=== PATIENT | female | born 1965 | race Two or more races ===

== ENCOUNTER 2021-01-25 15:23 | Emergency (ER) | payer MEDICAID, OTHER ==
[~2021-01-25] VITALS: Ht 160 cm; Wt 45.4 kg
[2021-01-25 16:13] LABS: Urine Amorphous Crystal FEW /hpf (None Seen); Urine Bacteria MOD /hpf (None Seen); Urine Blood Negative /uL (Negative); Urine Specific Gravity 1.006 (1.001-1.035); Urine WBC 27 /hpf (0 - 5)
[2021-01-25 17:52] VITALS: BP 138/90
== END 2021-01-25 18:07 | disposition home or self-care (01) ==
LOC: ER 15:23
DX: A60.00 Herpesviral infection of urogenital system, unspecified (principal)
CPT/HCPCS: 81001

== ENCOUNTER 2022-07-19 15:45 | Emergency (ER) | payer MEDICAID ==
[~2022-07-19] VITALS: Ht 152.4 cm; Wt 54.5 kg
[~2022-07-19 15:45] MED LIST: PANT40TA2 PO; SUCR1SUS10 PO; VANC125PO PO
[2022-07-19 17:48] LABS: Urine Bacteria NONE SEEN /hpf (None Seen); Urine Blood 1+ /uL (Negative); Urine Hyaline Cast MOD /lpf (0 - 2); Urine Mucus FEW (None Seen); Urine Specific Gravity 1.017 (1.001-1.035); Urine WBC 364 /hpf (0 - 5); Urine WBC Clumps PRESENT /hpf (None Seen)
[2022-07-20 10:11] VITALS: BP 166/73
[2022-07-20] MEDS ORDERED: cefTRIAXone SOD 1,000 MG VL IM ONE (11:45)
[2022-07-20] MEDS ORDERED: FLUC150T38 PO (13:20)
[2022-07-20] MEDS ORDERED: METR500T14 PO (13:20)
[2022-07-20] MEDS ORDERED: CIPR500T4 PO (13:20)
== END 2022-07-20 13:25 | disposition home or self-care (01) ==
LOC: ER 15:45
DX: N39.0 Urinary tract infection, site not specified (principal); N76.0 Acute vaginitis; B96.89 Other specified bacterial agents as the cause of diseases classified elsewhere; B37.31 Acute candidiasis of vulva and vagina; Z79.2 Long term (current) use of antibiotics; Z79.899 Other long term (current) drug therapy
CPT/HCPCS: 81001; 87070; 87210; 96372; 99283; J0696

== ENCOUNTER 2023-11-19 16:31 | Inpatient (IN) | payer MEDICAID, SELFPAY ==
[~2023-11-19] VITALS: Ht 152.4 cm; Wt 60.1 kg
[~2023-11-19 16:31] MED LIST changes: +CIPR500T4 PO; +FLUC150T38 PO; +METR-344 PO; -SUCR1SUS10 PO; +SUCR1SUS26 PO
[2023-11-19] MEDS: DEXTROSE (50%) 50ML SYRG IV ONE ×2 (16:53→19:17)
[2023-11-19] MEDS: DEXTROSE 50% SYRINGE 50 ML IV ONE (16:59)
[2023-11-19 17:10] VITALS: PULSE 103; RESP 16; O2SAT 97
[2023-11-19 17:29] LABS: Basophils # (auto) 0 10 ^3/uL (0-0.2); Basophils % (auto) 0.2 % (0.0-2.0); Hematocrit 24.7 % (36.0-46.0); Mean Corpuscular Volume 103.7 fL (80.0-100.0); Monocytes # (auto) 0.8 10 ^3/uL (0-1.3); Red Blood Cells 2.38 10^6/uL (4.0-5.20); White Blood Cell 13.2 10^3/uL (4.4-10.8)
[2023-11-19 17:31] LABS: Eosinophils # (auto) 0 10 ^3/uL (0-0.8); Eosinophils % (auto) 0.2 % (0.0-7.0); Hemoglobin 8.5 g/dL (12.2-16.2); Lymphocytes # (auto) 0.6 10 ^3/uL (0.4-5.4); Lymphocytes % (auto) 4.4 % (10.0-50.0); Mean Corpuscular Hemoglobin 35.6 pg (28.0-32.0); Mean Corpuscular Hgb Conc. 34.3 g/dL (32.0-36.0); Monocytes % (auto) 6.3 % (0.0-12.0); Neutrophils # (auto) 11.7 10 ^3/uL (1.6-8.6); Neutrophils % (auto) 88.9 % (37.0-80.0); Red Cell Distribution Width 14.3 % (11.8-14.3)
[2023-11-19 17:44] LABS: Alanine Aminotransferase 29 U/L (7-40); Albumin 4.1 g/dL (3.2-4.8); Alkaline Phosphatase 107 U/L (46-116); Anion Gap 18.00001 (5-15); Aspartate Aminotransferase 110 U/L (13-40); BUN/Creatinine Ratio 9.6 (10.0-20.0); Bilirubin, Total 0.2 mg/dL (0.2-1.0); Blood Urea Nitrogen 50 mg/dL (9-23); Calcium 8.8 mg/dL (8.5-10.1); Chloride 97 mmol/L (98-107); Magnesium 1.8 mg/dL (1.6-2.6); Potassium 3.6 mmol/L (3.5-5.1); Sodium 125 mmol/L (136-145)
[2023-11-19 17:45] LABS: Total Protein 6.8 g/dL (5.7-8.2)
[2023-11-19 17:46] LABS: INR 1.19 (0.9-1.15); Partial Thromboplastin Time 45.3 SEC (24.5-34.5); Prothrombin Time 12.5 sec (9.3-11.8)
[2023-11-19 17:54] LABS: Base Excess -17.3 mmol/L (-2.0-2.0)
[2023-11-19 18:00] LABS: Carbon Dioxide < 10 mmol/L (20-30); Glucose 27 mg/dL (74-106)
[2023-11-19] MEDS: cefTRIAXone 1GM/50ML D5W 50 ML IV ONE (18:44)
[2023-11-19] MEDS: SODIUM CHLORIDE 0.9% 500 ML IV ONE (18:45)
[2023-11-19 18:51] LABS: Urine Bacteria FEW /hpf (None Seen); Urine Blood 3+ /uL (Negative); Urine Clarity Ex.Turbid (Clear); Urine Color Brown (Yellow); Urine Protein, UAD 3+ (Negative); Urine Specific Gravity 1.014 (1.001-1.035); Urine Urobilinogen Normal (Negative); Urine WBC 1384 /hpf (0 - 5); Urine WBC Clumps PRESENT /hpf (None Seen)
[2023-11-19 18:59] LABS: Amphetamine Screen, Urine Neg (NEGATIVE); Barbiturate Scree,Urine Neg (NEGATIVE); Benzodiazephine Screen, Urine Neg (NEGATIVE); Cocaine Screen, Urine Neg (NEGATIVE)
[2023-11-19 19:00] LABS: Cannabinoid Screen, Urine Neg (NEGATIVE); Opiate Scree,Urine Pos (NEGATIVE); Phencyclidine Screen, Urine Neg (NEGATIVE)
[2023-11-19] MEDS ORDERED: DEXTROSE 10% 250 ML IV ONE (19:15)
[2023-11-19 19:30] VITALS: PULSE 86; RESP 14; O2SAT 98
[2023-11-19] MEDS: DEXTROSE 10% 1,000 ML IV SCH (19:39)
[2023-11-19 20:05] LABS: Platelet Estimate Decreased
[2023-11-19] MEDS ORDERED: HYDROcodone-ACET 5/325MG TAB PO PRN (22:45)
[2023-11-19] MEDS ORDERED: IBUPROFEN 600 MG TAB PO PRN (22:45)
[2023-11-19] MEDS ORDERED: DOCUSATE SOD 100 MG CAP PO PRN (22:45)
[2023-11-19] MEDS ORDERED: ONDANSETRON HCL 4 MG/2 ML VIAL IV PRN (22:45)
[2023-11-19 23:26] LABS: Free T3 0.28 pg/mL (2.3-4.2)
[2023-11-19 23:27] LABS: Free T4 (Free Thyroxine) 0.04 ng/dL (0.89-1.76)
[2023-11-19] MEDS ORDERED: NITROGLYCERIN 0.4 MG SL TAB SL PRN (23:45)
[2023-11-19] MEDS ORDERED: MORPHINE SULFATE INJ 2 MG/ml SYRG IV PRN (23:45)
[2023-11-20] VITALS (12 sets, daily range): BP systolic 99–133; BP diastolic 42–84; PULSE 72–94; RESP 16–20; TEMP 97.4–98.9; O2SAT 93–100
[2023-11-20] MEDS: InsuLIN REG 1unit/0.01ml Soln (100units/ml) SC SCH
[2023-11-20] MEDS: ACCU-CHEK COMFORT CURVE STRIP VI SCH (00:29)
[2023-11-20] MEDS: SODIUM CHLORIDE 0.9% 1,000 ML IV SCH (00:38)
[2023-11-20 05:47] LABS: Basophils # (auto) 0 10 ^3/uL (0-0.2); Basophils % (auto) 0.2 % (0.0-2.0); Hemoglobin 8.6 g/dL (12.2-16.2); Mean Corpuscular Hgb Conc. 34.1 g/dL (32.0-36.0); Monocytes # (auto) 0.3 10 ^3/uL (0-1.3); Nucleated Red Blood Cells % 0.1 %; Red Blood Cells 2.38 10^6/uL (4.0-5.20); Red Cell Distribution Width 14.5 % (11.8-14.3)
[2023-11-20 05:49] LABS: Eosinophils # (auto) 0.1 10 ^3/uL (0-0.8); Eosinophils % (auto) 0.6 % (0.0-7.0); Hematocrit 25.1 % (36.0-46.0); Lymphocytes % (auto) 15.8 % (10.0-50.0); Mean Corpuscular Hemoglobin 36.1 pg (28.0-32.0); Mean Corpuscular Volume 105.6 fL (80.0-100.0); Monocytes % (auto) 2.5 % (0.0-12.0); Neutrophils # (auto) 10.1 10 ^3/uL (1.6-8.6); Neutrophils % (auto) 80.9 % (37.0-80.0); White Blood Cell 12.5 10^3/uL (4.4-10.8)
[2023-11-20 06:07] LABS: Alanine Aminotransferase 27 U/L (7-40); Albumin 3.4 g/dL (3.2-4.8); Alkaline Phosphatase 109 U/L (46-116); Anion Gap 16.00001 (5-15); Aspartate Aminotransferase 98 U/L (13-40); BUN/Creatinine Ratio 8.4 (10.0-20.0); Blood Urea Nitrogen 42 mg/dL (9-23); Chloride 97 mmol/L (98-107); Glucose 130 mg/dL (74-106); Potassium 3.4 mmol/L (3.5-5.1); Sodium 123 mmol/L (136-145)
[2023-11-20 06:08] LABS: Bilirubin, Total 0.3 mg/dL (0.2-1.0); Total Protein 5.9 g/dL (5.7-8.2)
[2023-11-20 06:31] LABS: Carbon Dioxide < 10 mmol/L (20-30)
[2023-11-20] MEDS: FAMOTIDINE (10MG/ML) 2ML VL IV SCH (09:57)
[2023-11-20 12:00] LABS: Magnesium 1.7 mg/dL (1.6-2.6)
[2023-11-20 12:02] LABS: Phosphorus 3.2 mg/dL (2.4-5.1)
[2023-11-20] MEDS: POTASSIUM CHL 20MEQ/100ML 100 ML IV SCH (12:29)
[2023-11-20] MEDS: LEVOTHYROXINE SODIUM 100 MCG/5 ML INJ IV ONE (15:29)
[2023-11-20] MEDS: DEXTROSE (50%) 50ML SYRG IV PRN (16:12)
[2023-11-20] MEDS: SODIUM BICARB 50mEq/50ml Vial 100 ML in SOD CHL 0.45% 1,000 ML IV SCH (17:25)
[2023-11-20] MEDS: cefTRIAXone 1GM/50ML D5W 50 ML IV SCH (18:28)
[2023-11-21] VITALS (9 sets, daily range): BP systolic 101–141; BP diastolic 64–98; PULSE 60–98; RESP 16–20; TEMP 96.1–98.2; O2SAT 92–100
[2023-11-21] MEDS: LEVOTHYROXINE SODIUM 100 MCG/5 ML INJ IV SCH (09:13)
[2023-11-21] MEDS ORDERED: LORazepam 2MG/ML-1ML VIAL IV PRN (12:15)
[2023-11-21 12:27] LABS: Creatinine, Urine 22.75 mg/dL (30.0-125.0)
[2023-11-21] MEDS ORDERED: ERTAPENEM SOD INJ 1 GM in SODIUM CHL 0.9% 50 ML IV ONE (12:30)
[2023-11-21] MEDS: ERTAPENEM SOD INJ 0.5 GM in SODIUM CHL 0.9% 50 ML IV ONE (13:22)
[2023-11-21] MEDS: SODIUM CHLORIDE 0.9% 1,000 ML IV ONE (13:22)
[2023-11-22] VITALS (11 sets, daily range): BP systolic 95–125; BP diastolic 58–86; PULSE 76–93; RESP 14–21; TEMP 95.1–97.5; O2SAT 94–98
[2023-11-22 06:38] LABS: Hematocrit 19.8 % (36.0-46.0); Mean Corpuscular Hgb Conc. 34.2 g/dL (32.0-36.0)
[2023-11-22 06:41] LABS: Mean Corpuscular Hemoglobin 34.4 pg (28.0-32.0); Mean Corpuscular Volume 100.7 fL (80.0-100.0); Red Blood Cells 1.97 10^6/uL (4.0-5.20); Red Cell Distribution Width 14.9 % (11.8-14.3); White Blood Cell 23.6 10^3/uL (4.4-10.8)
[2023-11-22 07:03] LABS: Hemoglobin 6.8 g/dL (12.2-16.2)
[2023-11-22 07:04] LABS: Basophils % (manual) 0 (0.0-2.0); Blast Cells 0; Eosinophils % (manual) 0 (0-7); Metamyelocytes % 0; Myelocytes % 0; Promyelocytes % 0; Reactive Lymphocytes 0
[2023-11-22 07:06] LABS: Alanine Aminotransferase 20 U/L (7-40); Albumin 2.9 g/dL (3.2-4.8); Alkaline Phosphatase 128 U/L (46-116); Anion Gap 14 (5-15); Aspartate Aminotransferase 61 U/L (13-40); BUN/Creatinine Ratio 11.3 (10.0-20.0); Bilirubin, Total 0.3 mg/dL (0.2-1.0); Blood Urea Nitrogen 46 mg/dL (9-23); Calcium 6.7 mg/dL (8.5-10.1); Carbon Dioxide 11 mmol/L (20-30); Chloride 92 mmol/L (98-107); Glucose 148 mg/dL (74-106); Potassium 3.4 mmol/L (3.5-5.1); Total Protein 5.1 g/dL (5.7-8.2)
[2023-11-22 07:23] LABS: Sodium 117 mmol/L (136-145)
[2023-11-22 08:10] LABS: Band Neutrophils % (manual) 17; Lymphocytes % (manual) 15 (10.0-50.0); Monocytes % (manual) 2 (0-12)
[2023-11-22 08:13] LABS: Anisocytosis Slight; Macrocytosis Slight; Platelet Estimate Markedly Decreased
[2023-11-22] MEDS: SODIUM CHLORIDE 0.9% 1,000 ML IV ONE (08:25)
[2023-11-22] MEDS: D5W/LACTATED RINGERS 1,000 ML IV SCH (08:26)
[2023-11-22 09:05] LABS: Hepatitis B Surface Antigen Negative (Negative)
[2023-11-22 09:27] LABS: Hepatitis C Antibody Negative (Negative)
[2023-11-22] MEDS: ERTAPENEM SOD INJ 0.5 GM in SODIUM CHL 0.9% 50 ML IV SCH (09:31)
[2023-11-22] MEDS ORDERED: ERTAPENEM SOD INJ 1 GM in SODIUM CHL 0.9% 50 ML IV SCH (10:00)
[2023-11-22 11:17] LABS: Folate (Folic Acid) 9.73 ng/mL (>5.38)
[2023-11-22] MEDS ORDERED: PPN PER PHARMACY 0 ML IV SCH (14:00)
[2023-11-22] MEDS ORDERED: DEXTROSE (50%) 50ML SYRG IV SCH (14:15)
[2023-11-22] MEDS ORDERED: CLINIMIX PER PHARMACY 0 ML IV SCH (14:45)
[2023-11-22] MEDS: POTASSIUM CHL 20MEQ/100ML 100 ML IV ONE (15:00)
[2023-11-22 15:15] LABS: Anion Gap 11 (5-15); Carbon Dioxide 13 mmol/L (20-30); Chloride 95 mmol/L (98-107)
[2023-11-22 15:16] LABS: Calcium 6.6 mg/dL (8.7-10.4)
[2023-11-22 15:21] LABS: BUN/Creatinine Ratio 11.2 (10.0-20.0); Blood Urea Nitrogen 45 mg/dL (9-23); Glucose 106 mg/dL (74-106)
[2023-11-22 15:35] LABS: Sodium 119 mmol/L (136-145)
[2023-11-22] MEDS: POTASSIUM CHL 20MEQ/100ML 100 ML IV SCH (17:12)
[2023-11-22 17:17] LABS: INR 1.25 (0.9-1.15); Partial Thromboplastin Time 53.4 SEC (24.5-34.5)
[2023-11-22 17:33] LABS: Magnesium 1.3 mg/dL (1.6-2.6)
[2023-11-22 17:35] LABS: Phosphorus 3.1 mg/dL (2.4-5.1)
[2023-11-22] MEDS: InsuLIN REG 1unit/0.01ml Soln (100units/ml) SC SCH (18:00)
[2023-11-22] MEDS: ACCU-CHEK COMFORT CURVE STRIP VI SCH (18:02)
[2023-11-22 20:08] LABS: Anion Gap 10 (5-15); Carbon Dioxide 13 mmol/L (20-30); Chloride 97 mmol/L (98-107); Potassium 3.7 mmol/L (3.5-5.1); Sodium 120 mmol/L (136-145)
[2023-11-22 20:09] LABS: Calcium 6.6 mg/dL (8.5-10.1)
[2023-11-22 20:14] LABS: BUN/Creatinine Ratio 10.4 (10.0-20.0); Blood Urea Nitrogen 41 mg/dL (9-23); Glucose 101 mg/dL (74-106)
[2023-11-22] MEDS: AMINO ACID INFUSION IN D10W 2,000 ML IV NR (20:18)
[2023-11-23] VITALS (11 sets, daily range): BP systolic 93–105; BP diastolic 59–71; PULSE 76–83; RESP 17–22; TEMP 97.3–99.2; O2SAT 94–100
[2023-11-23 05:30] LABS: Basophils # (auto) 0 10 ^3/uL (0-0.2); Basophils % (auto) 0.2 % (0.0-2.0); Eosinophils # (auto) 0 10 ^3/uL (0-0.8); Eosinophils % (auto) 0.2 % (0.0-7.0); Hemoglobin 8.1 g/dL (12.2-16.2); Lymphocytes # (auto) 0.6 10 ^3/uL (0.4-5.4); Lymphocytes % (auto) 4.5 % (10.0-50.0); Mean Corpuscular Hgb Conc. 33.8 g/dL (32.0-36.0); Mean Corpuscular Volume 97.6 fL (80.0-100.0); Monocytes # (auto) 0.3 10 ^3/uL (0-1.3); Monocytes % (auto) 2.1 % (0.0-12.0); Neutrophils # (auto) 13.1 10 ^3/uL (1.6-8.6); Red Blood Cells 2.45 10^6/uL (4.0-5.20); Red Cell Distribution Width 16.5 % (11.8-14.3)
[2023-11-23 05:45] LABS: Alanine Aminotransferase 22 U/L (7-40); Albumin 2.8 g/dL (3.2-4.8); Alkaline Phosphatase 165 U/L (46-116); Anion Gap 13 (5-15); Aspartate Aminotransferase 70 U/L (13-40); BUN/Creatinine Ratio 12.2 (10.0-20.0); Blood Urea Nitrogen 49 mg/dL (9-23); Calcium 6.6 mg/dL (8.7-10.4); Carbon Dioxide 11 mmol/L (20-30); Chloride 96 mmol/L (98-107); Glucose 106 mg/dL (74-106); Magnesium 1.2 mg/dL (1.6-2.6); Potassium 3.8 mmol/L (3.5-5.1); Sodium 120 mmol/L (136-145)
[2023-11-23 05:46] LABS: Bilirubin, Total 0.4 mg/dL (0.2-1.0); Phosphorus 3.6 mg/dL (2.4-5.1)
[2023-11-23] MEDS: FAMOTIDINE (10MG/ML) 2ML VL IV SCH (09:24)
[2023-11-23] MEDS: MAGNESIUM SULFATE 1GM/100ML 100 ML IV SCH (13:07)
[2023-11-23] MEDS: levoFLOXacin 500MG 100 ML IV ONE (17:37)
[2023-11-23] MEDS: CALCIUM GLUC 1,000mg/50ml-NS 50 ML IV ONE (18:52)
[2023-11-23] MEDS: AMINO ACID INFUSION IN D10W 2,000 ML IV NR (20:45)
[2023-11-24] VITALS (26 sets, daily range): BP systolic 82–162; BP diastolic 48–90; PULSE 65–101; RESP 16–29; TEMP 96.3–98.1; O2SAT 93–100
[2023-11-24 05:54] LABS: Alanine Aminotransferase 19 U/L (7-40); Albumin 2.8 g/dL (3.2-4.8); Alkaline Phosphatase 167 U/L (46-116); Anion Gap 11 (5-15); Aspartate Aminotransferase 48 U/L (13-40); BUN/Creatinine Ratio 13.5 (10.0-20.0); Blood Urea Nitrogen 53 mg/dL (9-23); Carbon Dioxide 13 mmol/L (20-30); Chloride 96 mmol/L (98-107); Glucose 145 mg/dL (74-106); Magnesium 1.7 mg/dL (1.6-2.6); Phosphorus 4.1 mg/dL (2.4-5.1); Potassium 3.7 mmol/L (3.5-5.1); Sodium 120 mmol/L (136-145)
[2023-11-24 05:55] LABS: Bilirubin, Total 0.3 mg/dL (0.2-1.0)
[2023-11-24 06:20] LABS: Triglycerides 40 mg/dL (< 150)
[2023-11-24 08:06] LABS: Haptoglobin 101 mg/dL (33-346)
[2023-11-24] MEDS ORDERED: levoFLOXacin 500MG 100 ML IV SCH (10:00)
[2023-11-24] MEDS ORDERED: Glucerna 1.2 Cal 1Liter BOTTLE GT SCH (11:45)
[2023-11-24] MEDS: Jevity 1.2 Cal/Fiber 1 Liter GT SCH (14:00)
[2023-11-24] MEDS: ACCU-CHEK COMFORT CURVE STRIP VI SCH (17:00)
[2023-11-24] MEDS: InsuLIN REG 1unit/0.01ml Soln (100units/ml) SC SCH (17:00)
[2023-11-24] MEDS: PHENYLEPHRINE IV 250 ML IV ONE (19:03)
[2023-11-24] MEDS: fentaNYL Drip 2500mCg/250mlNS 250 ML IV ONE (19:30)
[2023-11-24] MEDS: PHENYLEPHRINE IV 250 ML IV SCH (19:30)
[2023-11-24] MEDS: fentaNYL Drip 2500mCg/250mlNS 250 ML IV SCH (19:30)
[2023-11-24 19:34] LABS: Basophils # (auto) 0 10 ^3/uL (0-0.2); Eosinophils # (auto) 0 10 ^3/uL (0-0.8); Eosinophils % (auto) 0.2 % (0.0-7.0); Hematocrit 25.8 % (36.0-46.0); Hemoglobin 8.5 g/dL (12.2-16.2); Lymphocytes # (auto) 0.7 10 ^3/uL (0.4-5.4); Mean Corpuscular Hemoglobin 33.4 pg (28.0-32.0); Mean Corpuscular Volume 101.2 fL (80.0-100.0); Monocytes # (auto) 0.3 10 ^3/uL (0-1.3); Monocytes % (auto) 4.9 % (0.0-12.0); Neutrophils # (auto) 5.7 10 ^3/uL (1.6-8.6); Neutrophils % (auto) 84.9 % (37.0-80.0); Nucleated Red Blood Cells % 0.3 %; Red Blood Cells 2.55 10^6/uL (4.0-5.20); Red Cell Distribution Width 17.6 % (11.8-14.3); White Blood Cell 6.7 10^3/uL (4.4-10.8)
[2023-11-24] MEDS: MIDAZOLAM DRIP 50 mg/50mL 50 ML IV SCH (19:40)
[2023-11-24] MEDS: NOREPINEPHRINE 8 MG/250ML KIT 250 ML IV ONE (19:40)
[2023-11-24] MEDS: NOREPINEPHRINE 8 MG/250ML KIT 250 ML IV SCH (19:40)
[2023-11-24 19:54] LABS: INR 1.21 (0.9-1.15); Partial Thromboplastin Time 54.5 SEC (24.5-34.5); Prothrombin Time 12.6 sec (9.3-11.8)
[2023-11-24 19:58] LABS: Alanine Aminotransferase 20 U/L (7-40); Albumin 2.9 g/dL (3.2-4.8); Alkaline Phosphatase 194 U/L (46-116); Anion Gap 9 (5-15); Aspartate Aminotransferase 55 U/L (13-40); Bilirubin, Total 0.3 mg/dL (0.2-1.0); Calcium 7.1 mg/dL (8.5-10.1); Carbon Dioxide 12 mmol/L (20-30); Chloride 99 mmol/L (98-107); Glucose 96 mg/dL (74-106); Potassium 4.7 mmol/L (3.5-5.1); Sodium 120 mmol/L (136-145); Total Protein 5.2 g/dL (5.7-8.2)
[2023-11-24 19:59] LABS: Blood Urea Nitrogen 40 mg/dL (9-23)
[2023-11-24] MEDS ORDERED: AMINO ACID INFUSION IN D5W 2,000 ML IV NR (20:00)
[2023-11-24 21:13] LABS: Base Excess -16.9 mmol/L (-2.0-2.0)
[2023-11-24] MEDS: SODIUM BICARB 50mEq/50ml Vial 50 ML in SOD CHL 0.45% 1,000 ML IV SCH (22:50)
[2023-11-24] MEDS: FUROSEMIDE 40 MG/4 ML VIAL IV ONE (22:50)
[2023-11-24] MEDS: SODIUM BICARB 8.4% 50Meq/50ml SYR Vial IV ONE (22:57)
[2023-11-25] VITALS (109 sets, daily range): BP systolic 85–159; BP diastolic 53–124; PULSE 19–110; RESP 14–22; TEMP 97–99.5; O2SAT 90–100
[2023-11-25 04:16] LABS: Basophils # (auto) 0 10 ^3/uL (0-0.2); Eosinophils # (auto) 0 10 ^3/uL (0-0.8); Lymphocytes # (auto) 0.5 10 ^3/uL (0.4-5.4); Monocytes # (auto) 0.4 10 ^3/uL (0-1.3)
[2023-11-25 04:20] LABS: Basophils % (auto) 0.2 % (0.0-2.0); Eosinophils % (auto) 0.3 % (0.0-7.0); Hematocrit 20.8 % (36.0-46.0); Hemoglobin 7.2 g/dL (12.2-16.2); Lymphocytes % (auto) 8.2 % (10.0-50.0); Mean Corpuscular Hemoglobin 33.6 pg (28.0-32.0); Mean Corpuscular Hgb Conc. 34.8 g/dL (32.0-36.0); Mean Corpuscular Volume 96.5 fL (80.0-100.0); Monocytes % (auto) 7.3 % (0.0-12.0); Neutrophils # (auto) 4.6 10 ^3/uL (1.6-8.6); Nucleated Red Blood Cells % 0.3 %; Red Blood Cells 2.15 10^6/uL (4.0-5.20); White Blood Cell 5.5 10^3/uL (4.4-10.8)
[2023-11-25 04:33] LABS: Anion Gap 12 (5-15); Carbon Dioxide 14 mmol/L (20-30); Chloride 98 mmol/L (98-107); Potassium 3.2 mmol/L (3.5-5.1); Sodium 124 mmol/L (136-145)
[2023-11-25 04:34] LABS: Calcium 7.4 mg/dL (8.5-10.1)
[2023-11-25 04:39] LABS: BUN/Creatinine Ratio 14.7 (10.0-20.0); Glucose 69 mg/dL (74-106)
[2023-11-25 04:42] LABS: Blood Urea Nitrogen 58 mg/dL (9-23)
[2023-11-25 08:16] LABS: Base Excess -11.9 mmol/L (-2.0-2.0)
[2023-11-25] MEDS: SODIUM BICARB 8.4% 50Meq/50ml SYR Vial IV ONE ×2 (08:34→15:18)
[2023-11-25] MEDS: POTASSIUM CHL 20MEQ/100ML 100 ML IV SCH ×2 (08:34→21:30)
[2023-11-25] MEDS: FUROSEMIDE 100 MG/10ML VIAL IV ONE (08:35)
[2023-11-25 08:43] LABS: Hepatitis B Surface Antigen Negative (Negative)
[2023-11-25 09:03] LABS: Hepatitis A Ab IgM Negative
[2023-11-25 09:05] LABS: Hepatitis B Core IgM Negative; Hepatitis C Antibody Negative (Negative)
[2023-11-25] MEDS: levoFLOXacin 250MG 50 ML IV SCH (10:19)
[2023-11-25] MEDS: ALBUTEROL SULF 2.5 MG/0.5ML(0.5%) NEB SOLN ONE (11:23)
[2023-11-25] MEDS: IPRATROPIUM BROM 0.5 MG/2.5ML INH SOL ONE (11:24)
[2023-11-25] MEDS: ACETYLCYSTEINE 10 %(100MG/ML) SOL 4ML ONE (11:25)
[2023-11-25] MEDS: ETOMIDATE (2MG/ML) 20ML VIAL IV ONE ×2 (11:52→11:53)
[2023-11-25] MEDS: ROCURONIUM 10MG/ML 10ML VIAL IV ONE (11:53)
[2023-11-25] MEDS: SUCCINYLCHOLINE CHLORIDE 20 MG/ML 10ML VIAL IV ONE (11:54)
[2023-11-25 12:07] LABS: Fibrin Degredation Products 5 ug/mL (<5)
[2023-11-25] MEDS: MAGNESIUM SULFATE 1GM/100ML 100 ML IV SCH (14:23)
[2023-11-25] MEDS: ACETYLCYSTEINE 10 %(100MG/ML) SOL 4ML IN SCH (15:35)
[2023-11-25] MEDS: ALBUTEROL SULF 2.5 MG/0.5ML(0.5%) NEB SOLN HHN SCH (15:35)
[2023-11-25] MEDS: IPRATROPIUM BROM 0.5 MG/2.5ML INH SOL NEB SCH (15:35)
[2023-11-25 19:14] LABS: Chloride 99 mmol/L (98-107); Potassium 3.2 mmol/L (3.5-5.1)
[2023-11-25 19:15] LABS: Anion Gap 9 (5-15); Calcium 7.7 mg/dL (8.5-10.1); Carbon Dioxide 22 mmol/L (20-30)
[2023-11-25 19:20] LABS: BUN/Creatinine Ratio 16.2 (10.0-20.0); Blood Urea Nitrogen 59 mg/dL (9-23); Glucose 106 mg/dL (74-106)
[2023-11-25 19:24] LABS: Sodium 130 mmol/L (136-145)
[2023-11-26] VITALS (107 sets, daily range): BP systolic 84–137; BP diastolic 52–79; PULSE 80–104; RESP 16–26; TEMP 97.3–98.2; O2SAT 95–100
[2023-11-26 00:06] LABS: Hexagonal Phase Phospholipid 5 sec (0-11); PTT-LA Mix 51.9 sec (0.0-40.5); Thrombin Time 16.3 sec (0.0-23.0); dPT Confirm Ratio 0.98 Ratio (0.00-1.34); dRVVT 51.3 sec (0.0-47.0); dRVVT Mix 38.7 sec (0.0-40.4)
[2023-11-26 01:06] LABS: Lupus Interpretation Comment: (.)
[2023-11-26 04:47] LABS: Basophils # (auto) 0 10 ^3/uL (0-0.2); Basophils % (auto) 0.1 % (0.0-2.0); Eosinophils # (auto) 0 10 ^3/uL (0-0.8); Hemoglobin 8.4 g/dL (12.2-16.2); Lymphocytes # (auto) 0.4 10 ^3/uL (0.4-5.4); Nucleated Red Blood Cells % 0.1 %; White Blood Cell 5.8 10^3/uL (4.4-10.8)
[2023-11-26 04:49] LABS: Chloride 101 mmol/L (98-107); Potassium 3.4 mmol/L (3.5-5.1); Sodium 131 mmol/L (136-145)
[2023-11-26 04:50] LABS: Anion Gap 11 (5-15); Calcium 8.2 mg/dL (8.7-10.4); Carbon Dioxide 19 mmol/L (20-30)
[2023-11-26 04:52] LABS: Eosinophils % (auto) 0.7 % (0.0-7.0); Lymphocytes % (auto) 7.7 % (10.0-50.0); Mean Corpuscular Hemoglobin 32.3 pg (28.0-32.0); Mean Corpuscular Hgb Conc. 34.9 g/dL (32.0-36.0); Mean Corpuscular Volume 92.4 fL (80.0-100.0); Monocytes # (auto) 0.5 10 ^3/uL (0-1.3); Neutrophils # (auto) 4.8 10 ^3/uL (1.6-8.6); Neutrophils % (auto) 82.5 % (37.0-80.0)
[2023-11-26 04:55] LABS: BUN/Creatinine Ratio 13.9 (10.0-20.0); Glucose 126 mg/dL (74-106)
[2023-11-26 04:56] LABS: Magnesium 1.9 mg/dL (1.6-2.6)
[2023-11-26 05:22] LABS: Blood Urea Nitrogen 49 mg/dL (9-23)
[2023-11-26] MEDS: MAGNESIUM SULFATE 1GM/100ML 100 ML IV ONE (05:57)
[2023-11-26 07:18] LABS: Base Excess -2.7 mmol/L (-2.0-2.0)
[2023-11-26] MEDS: NOREPINEPHRINE 8 MG/250ML KIT 250 ML IV SCH (11:03)
[2023-11-27] VITALS (110 sets, daily range): BP systolic 84–163; BP diastolic 53–87; PULSE 67–97; RESP 17–21; TEMP 96.3–98.6; O2SAT 97–100
[2023-11-27 04:27] LABS: Anion Gap 10 (5-15); Carbon Dioxide 23 mmol/L (20-30); Chloride 103 mmol/L (98-107); Potassium 2.9 mmol/L (3.5-5.1)
[2023-11-27 04:28] LABS: Calcium 8.9 mg/dL (8.7-10.4)
[2023-11-27 04:33] LABS: BUN/Creatinine Ratio 17.9 (10.0-20.0); Basophils # (auto) 0 10 ^3/uL (0-0.2); Blood Urea Nitrogen 57 mg/dL (9-23); Eosinophils # (auto) 0 10 ^3/uL (0-0.8); Eosinophils % (auto) 0.7 % (0.0-7.0); Glucose 108 mg/dL (74-106); Hemoglobin 8.1 g/dL (12.2-16.2); Lymphocytes # (auto) 0.5 10 ^3/uL (0.4-5.4); Monocytes # (auto) 0.4 10 ^3/uL (0-1.3); Nucleated Red Blood Cells % 0.1 %
[2023-11-27 04:35] LABS: Basophils % (auto) 0.2 % (0.0-2.0); Hematocrit 22.9 % (36.0-46.0); Lymphocytes % (auto) 9.9 % (10.0-50.0); Mean Corpuscular Hemoglobin 31.9 pg (28.0-32.0); Mean Corpuscular Hgb Conc. 35.1 g/dL (32.0-36.0); Mean Corpuscular Volume 90.7 fL (80.0-100.0); Monocytes % (auto) 8.4 % (0.0-12.0); Neutrophils # (auto) 4.1 10 ^3/uL (1.6-8.6); Neutrophils % (auto) 80.8 % (37.0-80.0); Red Blood Cells 2.53 10^6/uL (4.0-5.20); Red Cell Distribution Width 17.3 % (11.8-14.3)
[2023-11-27 04:37] LABS: Sodium 136 mmol/L (136-145)
[2023-11-27] MEDS: POTASSIUM CHL 20MEQ/100ML 100 ML IV SCH (06:48)
[2023-11-27] MEDS: NOREPINEPHRINE 8 MG/250ML KIT 250 ML IV SCH (08:00)
[2023-11-27 09:24] LABS: Base Excess 0.8 mmol/L (-2.0-2.0)
[2023-11-28] VITALS (108 sets, daily range): BP systolic 87–164; BP diastolic 38–92; PULSE 60–96; RESP 11–21; TEMP 97.9–99.1; O2SAT 98–100
[2023-11-28 04:02] LABS: Basophils # (auto) 0 10 ^3/uL (0-0.2); Eosinophils # (auto) 0 10 ^3/uL (0-0.8); Lymphocytes # (auto) 0.6 10 ^3/uL (0.4-5.4); Neutrophils # (auto) 3.2 10 ^3/uL (1.6-8.6); Nucleated Red Blood Cells % 0.1 %; White Blood Cell 4.2 10^3/uL (4.4-10.8)
[2023-11-28 04:04] LABS: Hematocrit 22.5 % (36.0-46.0); Hemoglobin 7.8 g/dL (12.2-16.2); Lymphocytes % (auto) 13.6 % (10.0-50.0); Mean Corpuscular Hemoglobin 31.5 pg (28.0-32.0); Mean Corpuscular Hgb Conc. 34.8 g/dL (32.0-36.0); Mean Corpuscular Volume 90.6 fL (80.0-100.0); Monocytes # (auto) 0.4 10 ^3/uL (0-1.3); Neutrophils % (auto) 75.4 % (37.0-80.0); Red Blood Cells 2.48 10^6/uL (4.0-5.20); Red Cell Distribution Width 17.6 % (11.8-14.3)
[2023-11-28 04:27] LABS: Calcium 9.2 mg/dL (8.7-10.4); Chloride 106 mmol/L (98-107); Potassium 3.2 mmol/L (3.5-5.1); Sodium 141 mmol/L (136-145)
[2023-11-28 04:33] LABS: BUN/Creatinine Ratio 19.4 (10.0-20.0); Blood Urea Nitrogen 51 mg/dL (9-23); Glucose 111 mg/dL (74-106)
[2023-11-28 04:34] LABS: Magnesium 1.8 mg/dL (1.6-2.6)
[2023-11-28 05:11] LABS: Anion Gap 10 (5-15); Carbon Dioxide 25 mmol/L (20-30)
[2023-11-28 08:39] LABS: Base Excess 1.8 mmol/L (-2.0-2.0)
[2023-11-28] MEDS: POTASSIUM CHL 20MEQ/100ML 100 ML IV ONE (08:56)
[2023-11-28] MEDS: FUROSEMIDE 40 MG/4 ML VIAL IV ONE (17:04)
[2023-11-28] MEDS ORDERED: hydrALAZINE HCL 20 MG/ML VL IV PRN (17:30)
[2023-11-28] MEDS: POTASSIUM CHL 20MEQ/100ML 100 ML IV SCH (17:32)
[2023-11-29] VITALS (102 sets, daily range): BP systolic 125–174; BP diastolic 41–84; PULSE 57–93; RESP 10–26; TEMP 96.3–99.3; O2SAT 94–100
[2023-11-29 03:46] LABS: Basophils # (auto) 0 10 ^3/uL (0-0.2); Eosinophils # (auto) 0 10 ^3/uL (0-0.8); Hemoglobin 7.9 g/dL (12.2-16.2); Lymphocytes # (auto) 0.6 10 ^3/uL (0.4-5.4); Monocytes # (auto) 0.5 10 ^3/uL (0-1.3); Neutrophils # (auto) 3.7 10 ^3/uL (1.6-8.6); Red Cell Distribution Width 17.7 % (11.8-14.3); White Blood Cell 4.8 10^3/uL (4.4-10.8)
[2023-11-29 03:50] LABS: Basophils % (auto) 0.3 % (0.0-2.0); Eosinophils % (auto) 0.3 % (0.0-7.0); Hematocrit 23.2 % (36.0-46.0); Mean Corpuscular Hemoglobin 31.5 pg (28.0-32.0); Mean Corpuscular Hgb Conc. 34.1 g/dL (32.0-36.0); Mean Corpuscular Volume 92.5 fL (80.0-100.0); Monocytes % (auto) 10.3 % (0.0-12.0); Neutrophils % (auto) 77.1 % (37.0-80.0); Nucleated Red Blood Cells % 0.1 %; Red Blood Cells 2.51 10^6/uL (4.0-5.20)
[2023-11-29 03:53] LABS: Anion Gap 7 (5-15); Carbon Dioxide 28 mmol/L (20-30); Chloride 109 mmol/L (98-107); Potassium 3.4 mmol/L (3.5-5.1); Sodium 144 mmol/L (136-145)
[2023-11-29 03:54] LABS: Calcium 9.6 mg/dL (8.5-10.1)
[2023-11-29 03:59] LABS: BUN/Creatinine Ratio 17.4 (10.0-20.0); Glucose 89 mg/dL (74-106)
[2023-11-29 04:00] LABS: Magnesium 1.7 mg/dL (1.6-2.6)
[2023-11-29 04:09] LABS: Blood Urea Nitrogen 37 mg/dL (9-23)
[2023-11-29] MEDS: POTASSIUM CHL 20MEQ/100ML 100 ML IV ONE (06:54)
[2023-11-29 09:46] LABS: Base Excess 3.3 mmol/L (-2.0-2.0)
[2023-11-29] MEDS: DEXTROSE (50%) 50ML SYRG IV PRN (10:10)
[2023-11-29] MEDS: LEVOTHYROXINE SODIUM 50 MCG TAB PO ONE (10:45)
[2023-11-29] MEDS: MAGNESIUM SULFATE 1GM/100ML 100 ML IV SCH (11:49)
[2023-11-29] MEDS: SOD CHL 0.45% 1,000 ML IV SCH (11:51)
[2023-11-29] MEDS: D5W/SOD CHL 0.45% 1,000 ML IV SCH (17:27)
[2023-11-30] VITALS (89 sets, daily range): BP systolic 116–156; BP diastolic 55–101; PULSE 59–100; RESP 10–26; TEMP 98–98.8; O2SAT 86–100
[2023-11-30 04:01] LABS: Basophils # (auto) 0 10 ^3/uL (0-0.2); Eosinophils # (auto) 0 10 ^3/uL (0-0.8); Eosinophils % (auto) 0.4 % (0.0-7.0); Lymphocytes # (auto) 0.6 10 ^3/uL (0.4-5.4); Lymphocytes % (auto) 13.3 % (10.0-50.0); Mean Corpuscular Volume 91.8 fL (80.0-100.0); Neutrophils # (auto) 3.6 10 ^3/uL (1.6-8.6); Nucleated Red Blood Cells % 0.1 %; Red Cell Distribution Width 17.6 % (11.8-14.3); White Blood Cell 4.7 10^3/uL (4.4-10.8)
[2023-11-30 04:03] LABS: Hematocrit 20.4 % (36.0-46.0); Mean Corpuscular Hgb Conc. 33.8 g/dL (32.0-36.0); Monocytes # (auto) 0.4 10 ^3/uL (0-1.3); Monocytes % (auto) 9.2 % (0.0-12.0); Neutrophils % (auto) 76.1 % (37.0-80.0); Red Blood Cells 2.22 10^6/uL (4.0-5.20)
[2023-11-30 04:13] LABS: Hemoglobin 6.9 g/dL (12.2-16.2)
[2023-11-30 04:17] LABS: Chloride 108 mmol/L (98-107); Potassium 3.1 mmol/L (3.5-5.1); Sodium 144 mmol/L (136-145)
[2023-11-30 04:18] LABS: Anion Gap 8 (5-15); Carbon Dioxide 28 mmol/L (20-30)
[2023-11-30 04:23] LABS: BUN/Creatinine Ratio 21.7 (10.0-20.0); Blood Urea Nitrogen 33 mg/dL (9-23); Glucose 97 mg/dL (74-106)
[2023-11-30] MEDS: LEVOTHYROXINE SODIUM 50 MCG TAB PO SCH (06:13)
[2023-11-30] MEDS: POTASSIUM CHL 20MEQ/100ML 100 ML IV ONE (06:33)
[2023-11-30] MEDS: SOD CHL 0.45% 1,000 ML IV SCH (13:08)
[2023-11-30] MEDS: POTASSIUM EFFERVESENT TAB 25 MEQ GT ONE (13:08)
[2023-11-30] MEDS: MAGNESIUM SULFATE 1GM/100ML 100 ML IV SCH (13:09)
[2023-11-30] MEDS: POTASSIUM CHL 20MEQ/100ML 100 ML IV SCH (13:09)
[2023-12-01] VITALS (54 sets, daily range): BP systolic 120–163; BP diastolic 66–89; PULSE 66–104; RESP 12–23; TEMP 97.5–98.8; O2SAT 89–100
[2023-12-01 03:25] LABS: Basophils # (auto) 0.1 10 ^3/uL (0-0.2); Basophils % (auto) 1.9 % (0.0-2.0); Eosinophils # (auto) 0 10 ^3/uL (0-0.8); Eosinophils % (auto) 0.5 % (0.0-7.0); Hematocrit 25.8 % (36.0-46.0); Hemoglobin 8.5 g/dL (12.2-16.2); Lymphocytes # (auto) 0.6 10 ^3/uL (0.4-5.4); Lymphocytes % (auto) 10.2 % (10.0-50.0); Mean Corpuscular Hemoglobin 30.3 pg (28.0-32.0); Mean Corpuscular Hgb Conc. 32.9 g/dL (32.0-36.0); Mean Corpuscular Volume 92.2 fL (80.0-100.0); Monocytes # (auto) 0.5 10 ^3/uL (0-1.3); Monocytes % (auto) 8.9 % (0.0-12.0); Neutrophils # (auto) 4.7 10 ^3/uL (1.6-8.6); Neutrophils % (auto) 78.5 % (37.0-80.0); Nucleated Red Blood Cells % 0.1 %; Red Cell Distribution Width 17.4 % (11.8-14.3)
[2023-12-01 03:36] LABS: Chloride 109 mmol/L (98-107); Potassium 4.7 mmol/L (3.5-5.1); Sodium 141 mmol/L (136-145)
[2023-12-01 03:37] LABS: Anion Gap 6 (5-15); Carbon Dioxide 26 mmol/L (20-30)
[2023-12-01 03:42] LABS: BUN/Creatinine Ratio 18.5 (10.0-20.0); Blood Urea Nitrogen 24 mg/dL (9-23); Glucose 78 mg/dL (74-106)
[2023-12-02] VITALS (18 sets, daily range): BP systolic 116–142; BP diastolic 67–78; PULSE 72–110; RESP 14–20; TEMP 97.7–98; O2SAT 90–100
[2023-12-02] MEDS: levoFLOXacin 250MG 50 ML IV SCH (09:58)
[2023-12-02] MEDS ORDERED: CALCIUM CARB 500 MG CHEW TAB PO PRN (22:45)
[2023-12-02] MEDS: ACETAMINOPHEN 325 MG TAB PO PRN (22:56)
[2023-12-03] VITALS (21 sets, daily range): BP systolic 114–134; BP diastolic 65–79; PULSE 61–105; RESP 14–22; TEMP 97.8–98.6; O2SAT 92–100
[2023-12-03] MEDS: FAMOTIDINE (10MG/ML) 2ML VL IV SCH (09:17)
[2023-12-03 10:53] LABS: Basophils # (auto) 0.2 10 ^3/uL (0-0.2); Eosinophils # (auto) 0 10 ^3/uL (0-0.8); Lymphocytes # (auto) 0.7 10 ^3/uL (0.4-5.4); Mean Corpuscular Volume 92.6 fL (80.0-100.0); Monocytes # (auto) 0.5 10 ^3/uL (0-1.3); Red Blood Cells 2.73 10^6/uL (4.0-5.20)
[2023-12-03 10:56] LABS: Basophils % (auto) 4.6 % (0.0-2.0); Hematocrit 25.3 % (36.0-46.0); Hemoglobin 8.3 g/dL (12.2-16.2); Lymphocytes % (auto) 16.2 % (10.0-50.0); Mean Corpuscular Hemoglobin 30.6 pg (28.0-32.0); Monocytes % (auto) 11.5 % (0.0-12.0); Neutrophils # (auto) 2.8 10 ^3/uL (1.6-8.6); Neutrophils % (auto) 66.7 % (37.0-80.0); Nucleated Red Blood Cells % 0.1 %; Red Cell Distribution Width 16.6 % (11.8-14.3); White Blood Cell 4.2 10^3/uL (4.4-10.8)
[2023-12-03 11:26] LABS: Alanine Aminotransferase 12 U/L (7-40); Alkaline Phosphatase 98 U/L (46-116); Anion Gap 6 (5-15); Blood Urea Nitrogen 18 mg/dL (9-23); Calcium 8.7 mg/dL (8.5-10.1); Carbon Dioxide 25 mmol/L (20-30); Chloride 107 mmol/L (98-107); Glucose 83 mg/dL (74-106); Potassium 3.9 mmol/L (3.5-5.1); Sodium 138 mmol/L (136-145)
[2023-12-03 11:27] LABS: Albumin 3.1 g/dL (3.2-4.8); Aspartate Aminotransferase 34 U/L (13-40); Bilirubin, Total 0.6 mg/dL (0.2-1.0); Total Protein 5.3 g/dL (5.7-8.2)
[2023-12-03] MEDS: ERTAPENEM SOD INJ 1 GM in SODIUM CHL 0.9% 50 ML IV SCH (13:38)
[2023-12-04] VITALS (22 sets, daily range): BP systolic 118–148; BP diastolic 67–82; PULSE 68–98; RESP 16–20; TEMP 98–98.7; O2SAT 89–100
[2023-12-04] MEDS: D5W/SOD CHLO 0.9% 1,000 ML IV SCH (10:45)
[2023-12-05] VITALS (13 sets, daily range): BP systolic 138–149; BP diastolic 71–81; PULSE 78–106; RESP 17–20; TEMP 36.4; O2SAT 94–100
[2023-12-05] MEDS ORDERED: LEVO500T91 PO (09:07)
[2023-12-05] MEDS ORDERED: ALBUAER3 IN (09:07)
[2023-12-05] MEDS ORDERED: LEV100T PO (09:07)
[2023-12-05] MEDS ORDERED: LEV50T PO (09:15)
== END 2023-12-05 16:40 | disposition hospice, home (50) | DRG 870 ==
LOC: ER 16:31 → TELE 23:41 → TELE-WESTW 23:48 → TELE-EAST 11-21 17:32 → ICU WEST 11-24 19:38 → TELE-CENTR 12-01 16:20
PROVIDERS: ADMIT Nurse Practitioner Family; ATTEND Family Medicine
PROC: 30233N1 Transfusion of Nonautologous Red Blood Cells into Peripheral Vein, Percutaneous Approach (ICD-10-PCS; 2023-11-22)
PROC: 30233R1 Transfusion of Nonautologous Platelets into Peripheral Vein, Percutaneous Approach (ICD-10-PCS; 2023-11-23)
PROC: 5A1955Z Respiratory Ventilation, Greater than 96 Consecutive Hours (ICD-10-PCS; principal; 2023-11-24)
PROC: 0BH17EZ Insertion of Endotracheal Airway into Trachea, Via Natural or Artificial Opening (ICD-10-PCS; 2023-11-24)
PROC: 02HV33Z Insertion of Infusion Device into Superior Vena Cava, Percutaneous Approach (ICD-10-PCS; 2023-11-24)
PROC: B548ZZA Ultrasonography of Superior Vena Cava, Guidance (ICD-10-PCS; 2023-11-24)
PROC: 05HB33Z Insertion of Infusion Device into Right Basilic Vein, Percutaneous Approach (ICD-10-PCS; 2023-11-24)
PROC: B54MZZA Ultrasonography of Right Upper Extremity Veins, Guidance (ICD-10-PCS; 2023-11-24)
PROC: 5A12012 Performance of Cardiac Output, Single, Manual (ICD-10-PCS; 2023-11-24)
DX: A41.50 Gram-negative sepsis, unspecified (principal); J96.01 Acute respiratory failure with hypoxia; E03.5 Myxedema coma; G93.41 Metabolic encephalopathy; R65.21 Severe sepsis with septic shock; D68.9 Coagulation defect, unspecified; N17.9 Acute kidney failure, unspecified; N39.0 Urinary tract infection, site not specified; E87.1 Hypo-osmolality and hyponatremia; Z16.12 Extended spectrum beta lactamase (ESBL) resistance; J98.11 Atelectasis; D53.9 Nutritional anemia, unspecified; D69.6 Thrombocytopenia, unspecified; E16.2 Hypoglycemia, unspecified; E87.6 Hypokalemia; N18.9 Chronic kidney disease, unspecified; B96.20 Unspecified Escherichia coli [E. coli] as the cause of diseases classified elsewhere; E83.42 Hypomagnesemia; F17.200 Nicotine dependence, unspecified, uncomplicated; R33.9 Retention of urine, unspecified; E03.9 Hypothyroidism, unspecified; D63.8 Anemia in other chronic diseases classified elsewhere; E87.70 Fluid overload, unspecified; Z83.3 Family history of diabetes mellitus; Z51.5 Encounter for palliative care
CPT/HCPCS: 36415; 36600; 70450; 71045; 71250; 74176; 76536; 76775; 80048; 80053; 80074; 80307; 81001; 82140; 82306; 82570; 82607; 82728; 82746; 82805; 82962; 83010; 83036; 83540; 83550; 83605; 83615; 83735; 83880; 83970; 84100; 84300; 84439; 84443; 84478; 84481; 84484; 85007; 85025; 85027; 85045; 85362; 85384; 85610; 85613; 85670; 85705; 85730; 85732; 86703; 86803; 86850; 86900; 86901; 86920; 87040; 87070; 87077; 87081; 87086; 87088; 87186; 87205; 87340; 92507; 92610; 92950; 93005; 93306; 94002; 94003; 94640; 96365; 96375; 96376; 97110; 97116; 97163; 97530; 99291; G0378; J0330; J1335; J1815; J1956; J3480; J3490; J7060